=== PATIENT | female | born 1945 | race Caucasian/White ===

== ENCOUNTER 2016-09-15 20:51 | Emergency (ER) | payer MEDICARE ==
[2016-09-15 19:21] LABS: BASOPHILS 0.6 %; BASOPHILS ABSOLUTE 0.05 10/3/uL (0.0-0.16); EOSINOPHILS 0.8 %; EOSINOPHILS ABSOLUTE 0.07 10/3/uL (0.0-0.53); ER CBC TAT 0 Hrs 03 Mins; HEMOGLOBIN 10.1 g/dL (12.0-16.0); IMMATURE GRANULOCYTES 0.1 %; IMMATURE GRANULOCYTES ABSOLUTE 0.01 10/3/uL (0.0-0.11); LYMPHOCYTES 25.9 %; LYMPHOCYTES ABSOLUTE 2.28 10/3/uL (0.67-4.30); MEAN CORPUS HGB CONC 30.4 g/dL (32.0-36.0); MEAN CORPUSCULAR HEMOGLOB 26.1 pg (26.0-34.0); MEAN CORPUSCULAR VOLUME 85.8 fL (80-100); MEAN PLATELET VOLUME 9.6 fL (9.2-13.0); MONOCYTES 5.1 %; MONOCYTES ABSOLUTE 0.45 10/3/uL (0.21-1.20); NEUTROPHILS 67.5 %; NEUTROPHILS ABSOLUTE 5.93 10/3/uL (2.02-8.40); RBC DISTRIBUTION WIDTH 16.1 % (12.0-16.0); RED CELL COUNT 3.87 10/6/uL (4.0-5.6); WHITE BLOOD CELLS 8.8 10/3/uL (4.5-10.5)
[2016-09-15 19:22] LABS: HEMATOCRIT 33.2 % (36.0-48.0); MANUAL DIFF NO %; PLATELET COUNT 381 10/3/uL (150-400)
[2016-09-15 19:32] LABS: PARTIAL THROMBO TIME 27.8 SEC (22.5-37.2)
[2016-09-15 19:39] LABS: CALCIUM, SERUM 8.2 MG/DL (8.5-10.4); CHEST PAIN PROFILE TAT 0 Hrs 21 Mins; CHLORIDE, SERUM 108 MMOL/L (96-112); CO2 (CARBON DIOXIDE) 27 MMOL/L (24-34); CREATININE 1.17 MG/DL (0.55-1.02); GFR AFRICAN AMERICAN 54 ML/MIN (>=60); GFR NON AFRICAN AMERICAN 47 ML/MIN (>=60); POTASSIUM, SERUM 4.4 MMOL/L (3.5-5.3); SODIUM, SERUM 144 MMOL/L (135-148); TROPONIN I <0.02 NG/ML (<0.05)
[2016-09-15 19:40] LABS: BUN (BLOOD UREA NITROGEN) 26 MG/DL (6-23); GLUCOSE, SERUM 115 MG/DL (60-99)
[~2016-09-15 20:51] MED LIST: APRES25 PO; APRES50 PO; B COMPLEX-C PO; CADUET5 MG/20 MG PO; CAT1 PO; DRONED400 PO; GLUCOPHAGE1000 MG PO; GLUCPH PO; IMDUR120 PO; IMDUR60 PO; L40 PO; LOTE20 PO; LOTE40 PO; MOBIC15 MG PO; NEUR600 PO; NORV5 PO; PRADAXA150 MG PO; PRILO PO; SUCR PO; SYN1 PO; TOPXL25 PO; TOPXL50 PO; TYLENOL ARTH650 MG PO; VITAMIN B-121000 MC1 SL; VITAMIN B-2100 MG PO; VYTORIN 10/10 T1 TAB PO
[2016-09-22] MEDS ORDERED: PLAVIX PO (12:48)
[2016-11-13] MEDS ORDERED: EZFE 200200 MG PO (13:45)
[2016-12-19] MEDS ORDERED: DEMA10T PO (15:11)
== END 2016-09-15 23:09 | disposition home or self-care (01) ==
LOC: ER 20:51
PROVIDERS: Emergency Medicine
DX: R07.9 Chest pain, unspecified (principal); I10 Essential (primary) hypertension; I50.9 Heart failure, unspecified; E11.9 Type 2 diabetes mellitus without complications; I48.91 Unspecified atrial fibrillation; Z88.5 Allergy status to narcotic agent; Z79.899 Other long term (current) drug therapy
CPT/HCPCS: 71020; 80048; 83735; 84484; 85025; 85610; 85730; 93005; 96372; 99285; J1885

== ENCOUNTER 2016-10-25 12:49 | Emergency (ER) | payer MEDICARE ==
[~2016-10-25 12:49] MED LIST changes: +PLAVIX PO
[2016-10-25 13:37] LABS: BASOPHILS 0.3 %; BASOPHILS ABSOLUTE 0.02 10/3/uL (0.0-0.16); EOSINOPHILS 1.3 %; EOSINOPHILS ABSOLUTE 0.09 10/3/uL (0.0-0.53); HEMATOCRIT 33.3 % (36.0-48.0); IMMATURE GRANULOCYTES 0.3 %; IMMATURE GRANULOCYTES ABSOLUTE 0.02 10/3/uL (0.0-0.11); LYMPHOCYTES 23.4 %; LYMPHOCYTES ABSOLUTE 1.66 10/3/uL (0.67-4.30); MEAN CORPUSCULAR HEMOGLOB 25.9 pg (26.0-34.0); MEAN CORPUSCULAR VOLUME 86.3 fL (80-100); MEAN PLATELET VOLUME 9.9 fL (9.2-13.0); MONOCYTES 7.2 %; MONOCYTES ABSOLUTE 0.51 10/3/uL (0.21-1.20); NEUTROPHILS 67.5 %; NEUTROPHILS ABSOLUTE 4.78 10/3/uL (2.02-8.40); PLATELET COUNT 388 10/3/uL (150-400); RBC DISTRIBUTION WIDTH 15.5 % (12.0-16.0); RED CELL COUNT 3.86 10/6/uL (4.0-5.6); WHITE BLOOD CELLS 7.1 10/3/uL (4.5-10.5)
[2016-10-25 13:38] LABS: MANUAL DIFF NO %
[2016-10-25 13:54] LABS: A/G RATIO 0.9 (0.7-1.9); ALBUMIN 3.1 G/DL (3.5-5.0); ALKALINE PHOSPHATASE 84 U/L (45-117); BUN (BLOOD UREA NITROGEN) 17 MG/DL (6-23); CALCIUM, SERUM 7.8 MG/DL (8.5-10.4); CHLORIDE, SERUM 107 MMOL/L (96-112); CO2 (CARBON DIOXIDE) 31 MMOL/L (24-34); CREATININE 0.96 MG/DL (0.55-1.02); GFR AFRICAN AMERICAN 69 ML/MIN (>=60); GFR NON AFRICAN AMERICAN 60 ML/MIN (>=60); GLOBULIN 3.4 G/DL (2.5-4.1); GLUCOSE, SERUM 110 MG/DL (60-99); LACTATE 1.9 MMOL/L (0.3-2.4); POTASSIUM, SERUM 3.9 MMOL/L (3.5-5.3); SGOT(AST) 12 U/L (5-40); SGPT(ALT) 10 U/L (5-65); SODIUM, SERUM 144 MMOL/L (135-148); TOTAL BILIRUBIN 0.2 MG/DL (0-1.2); TOTAL PROTEIN 6.5 G/DL (6.0-8.5)
[2016-10-25 13:55] LABS: ASCORBIC ACID (UR NOT ORDER) NEG (NEG); BILIRUBIN, URINE NEGATIVE (NEG); ER URINALYSIS TAT 0 Hrs 16 Mins; KETONE, URINE NEGATIVE (NEG); LEUKOCYTE ESTERASE(NOT OR NEG (NEG); NITRITE (URINE) NEG (NEG); WBC (NOT ORDERED) (RFLEX) 1 (0-5)
[2016-11-13] MEDS ORDERED: EZFE 200200 MG PO (13:45)
[2016-12-19] MEDS ORDERED: DEMA10T PO (15:11)
== END 2016-10-25 16:23 | disposition home or self-care (01) ==
LOC: ER 12:49
PROVIDERS: Hospitalist
DX: E66.9 Obesity, unspecified (principal); R06.02 Shortness of breath; D64.9 Anemia, unspecified; I11.0 Hypertensive heart disease with heart failure; I50.9 Heart failure, unspecified; I48.91 Unspecified atrial fibrillation; E11.9 Type 2 diabetes mellitus without complications; Z90.49 Acquired absence of other specified parts of digestive tract; Z90.710 Acquired absence of both cervix and uterus; Z88.8 Allergy status to other drugs, medicaments and biological substances; Z88.5 Allergy status to narcotic agent; Z79.84 Long term (current) use of oral hypoglycemic drugs; Z79.899 Other long term (current) drug therapy; Z68.45 Body mass index [BMI] 70 or greater, adult
CPT/HCPCS: 71010; 74176; 80053; 81001; 83605; 83690; 85025; 93005; 96374; 99285; C9113; J2405

== ENCOUNTER 2016-11-18 11:06 | Day surgery (SDC) | payer MEDICARE ==
--- NOTE | ~2016-11-18 | EGD ---
EGD REPORT [facility] [address] [address] NAME: LESVIA RENTERIA : [birth year] [place] [facility] [place] [id number] AGE: 71 ADM/REG DATE : 11/18/16 MR#: [id number] REPORT SERV DATE: 11/18/16 DICTATED BY: DATE: REPORT STATUS : Draft TRANSCRIBED BY: [employer] DATE: 11/18/16 [facility] Patient Name: Lesvia Renteria Date of : 1945 Attending MD: PEPE MTZ MD Procedure Date No Time: 11/18/2016 Procedure: Upper GI endoscopy Indications: Iron deficiency anemia, Dysphagia Referring MD: JASON DON Medicines: Monitored Anesthesia Care Complications: No immediate complications. Procedure: Pre-Anesthesia Assessment: - ASA Grade Assessment: III - A patient with severe systemic disease. After obtaining informed consent, the endoscope was passed under direct vision. Throughout the procedure, the patient's blood pressure, pulse, and oxygen saturations were monitored continuously. The GIF [id number] was introduced through the mouth, and advanced to the second part of duodenum. The upper GI endoscopy was accomplished without difficulty. The patient tolerated the procedure well. Findings: Moderately severe esophagitis with no bleeding was found in the lower third of the esophagus. Ulcerations noted in the distal esophagus and stricture. Scope would pass but was tight. No dilation performed due to ulcerations/inflammation. Biopsies were taken with a cold forceps for histology. A moderate stenosis measuring 3 cm (in length) x 1.1 cm (inner diameter) was found in the lower third of the esophagus and was traversed. Biopsies were taken with a cold forceps for histology. s/p lap band The duodenal bulb was normal. A medium-sized diverticulum was found in the second part of the duodenum. Impression: - Moderately severe esophagitis. Biopsied. - Esophageal stricture. Biopsied. - Normal duodenal bulb. - Duodenal diverticulum. Recommendation: - Patient has a contact number available for emergencies. The signs and symptoms of potential delayed complications were discussed with the patient. Return to normal activities tomorrow. Written discharge EGD REPORT [address] [address] NAME: LESVIA RENTERIA DAYNE : [birth year] [place] [facility] [place] [id number] AGE: 71 ADM/REG DATE : 11/18/16 MR#: [id number] REPORT SERV DATE: 11/18/16 DICTATED BY: DATE: REPORT STATUS : Draft TRANSCRIBED BY: [email or web address] DATE: 11/18/16 instructions were provided to the patient. - Soft diet. - Await pathology results. - Repeat the upper endoscopy in 1 month for retreatment. - Use Prilosec (omeprazole) 40 mg PO BID. - Use Zantac (ranitidine) 300 mg PO at bedtime. - Follow an antireflux regimen. Procedure Code(s): --- Professional --- 13913, Esophagogastroduodenoscopy, flexible, transoral; with biopsy, single or multiple Diagnosis Code(s): --- Professional --- K20.9, Esophagitis, unspecified K22.2, Esophageal obstruction K57.10, Diverticulosis of small intestine without perforation or abscess without bleeding D50.9, Iron deficiency anemia, unspecified R13.10, Dysphagia, unspecified CPT copyright 2013 [employer]. All rights reserved. The codes documented in this report are preliminary and upon voltage inspector review may be revised to meet current compliance requirements. PEPE MTZ MD 11/18/2016 2:12 PM This report has been signed electronically. Number of Addenda: 0 Note Initiated On: 11/18/2016 1:54 PM Scope Withdrawal Time 0 hours 0 minutes 0 seconds [address] [id number]
--- NOTE | ~2016-11-18 | EGD ---
EGD REPORT [facility] [address] [address] NAME: LESVIA FLORES : [birth year] [place] : [place] [facility] [facility] [place] PAT#: [id number] AGE: 71 ADM/REG DATE : 11/18/16 MR#: [id number] REPORT SERV DATE: 11/18/16 DICTATED BY: PEPE MTZ DATE: 11/18/16 REPORT STATUS : Draft TRANSCRIBED BY: [employer] DATE: 11/18/16 [facility] Patient Name: Lesvia Flores Date of : 1945 Attending MD: PEPE MTZ MD Procedure Date No Time: 11/18/2016 Procedure: Colonoscopy Indications: Iron deficiency anemia Referring MD: JASON DON Medicines: Monitored Anesthesia Care Complications: No immediate complications. Procedure: Pre-Anesthesia Assessment: - ASA Grade Assessment: III - A patient with severe systemic disease. After I obtained informed consent, the scope was passed under direct vision. Throughout the procedure, the patient's blood pressure, pulse, and oxygen saturations were monitored continuously. The CF [id number] was introduced through the anus and advanced to the cecum, identified by appendiceal orifice and ileocecal valve. The colonoscopy was performed with moderate difficulty due to significant looping, a tortuous colon and the patient's body habitus. Successful completion of the procedure was aided by applying abdominal pressure. The patient tolerated the procedure well. The quality of the bowel preparation was adequate. Findings: The digital rectal exam was normal. Pertinent negatives include no palpable rectal lesions. Multiple diverticula were found in the sigmoid colon. Hemorrhoids were found during retroflexion and were moderate. Impression: - Diverticulosis in the sigmoid colon. - Hemorrhoids. Recommendation: - Patient has a contact number available for emergencies. The signs and symptoms of potential delayed complications were discussed with the patient. Return to normal activities tomorrow. Written discharge instructions were provided to the patient. - Soft diet. - Continue present medications. - Repeat colonoscopy is not recommended for screening purposes. EGD REPORT [place] [id number] [facility] [place]. [address] NAME: LESVIA FLORES DAYNE : [birth year] STATUS : REG [facility]#: [id number] AGE: 71 ADM/REG DATE : 11/18/16 MR#: [id number] REPORT SERV DATE: 11/18/16 DICTATED BY: PEPE MTZ DATE: 11/18/16 REPORT STATUS : Draft TRANSCRIBED BY: [employer] ([employer] DATE: 11/18/16 - Perform an upper GI endoscopy in 1 month. Procedure Code(s): --- Professional --- 81540, Colonoscopy, flexible, proximal to splenic flexure; diagnostic, with or without collection of specimen(s) by brushing or washing, with or without colon decompression (separate procedure) Diagnosis Code(s): --- Professional --- K64.9, Unspecified hemorrhoids K57.30, Diverticulosis of large intestine without perforation or abscess without bleeding D50.9, Iron deficiency anemia, unspecified CPT copyright 2013 [employer]. All rights reserved. The codes documented in this report are preliminary and upon medical record coder review may be revised to meet current compliance requirements. PEPE MTZ MD 11/18/2016 2:34 PM This report has been signed electronically. Number of Addenda: 0 Note Initiated On: 11/18/2016 12:31 PM Scope Withdrawal Time 0 hours 6 minutes 52 seconds [address] [place] [address]
[~2016-11-18 11:06] MED LIST changes: +EZFE 200200 MG PO
[2016-12-19] MEDS ORDERED: DEMA10T PO (15:11)
== END 2016-11-18 23:59 | disposition home or self-care (01) ==
LOC: DMU 11:06
PROVIDERS: Internal Medicine Gastroenterology
PROC: 0DJD8ZZ Inspection of Lower Intestinal Tract, Via Natural or Artificial Opening Endoscopic (ICD-10-PCS; principal; 2016-11-18 12:30)
PROC: 0DB58ZX Excision of Esophagus, Via Natural or Artificial Opening Endoscopic, Diagnostic (ICD-10-PCS; 2016-11-18 12:30)
DX: K64.9 Unspecified hemorrhoids (principal); K57.30 Diverticulosis of large intestine without perforation or abscess without bleeding; K22.2 Esophageal obstruction; K22.10 Ulcer of esophagus without bleeding; D50.9 Iron deficiency anemia, unspecified; K57.10 Diverticulosis of small intestine without perforation or abscess without bleeding; I10 Essential (primary) hypertension; M19.90 Unspecified osteoarthritis, unspecified site; I11.0 Hypertensive heart disease with heart failure; I50.9 Heart failure, unspecified; E03.9 Hypothyroidism, unspecified; E11.9 Type 2 diabetes mellitus without complications; Z88.5 Allergy status to narcotic agent; Z88.8 Allergy status to other drugs, medicaments and biological substances; I48.91 Unspecified atrial fibrillation; Z90.710 Acquired absence of both cervix and uterus; Z98.890 Other specified postprocedural states
CPT/HCPCS: 71010; 82962; 88305; 88312